=== PATIENT | male | born 1970 ===

== ENCOUNTER 2021-05-01 08:41 | Day surgery (SDC) | payer OTHER ==
[2021-05-01] MEDS ORDERED: ULTRAM50 MG PO (14:28)
[2021-05-01] MEDS ORDERED: DUI500 PO (14:28)
== END 2021-05-01 17:00 | disposition home or self-care (01) ==
LOC: CIR.AMB 08:41
PROVIDERS: ATTEND Orthopaedic Surgery Sports Medicine
DX: S83.281A Other tear of lateral meniscus, current injury, right knee, initial encounter (principal); M23.321 Other meniscus derangements, posterior horn of medial meniscus, right knee; M65.861 Other synovitis and tenosynovitis, right lower leg